=== PATIENT | female | born 1950 | race Caucasian/White ===

== ENCOUNTER 2016-06-13 08:33 | Outpatient (CLI) | payer MEDICARE, OTHER ==
[2016-06-13 09:38] LABS: ALT (SGPT) 46 U/L (8-55); AST (SGOT) 39 U/L (5-34); Albumin 4.3 g/dL (3.4-4.8); Alkaline Phosphatase 105 U/L (40-150); Anion Gap 17 mmol/L (10-20); BUN (Urea Nitrogen) 19 mg/dL (9.8-20.1); Bilirubin, Total 0.3 mg/dL (0.2-1.2); Calc. Creatinine Clearance 0 mL/min (70-130); Calcium 11.8 mg/dL (7.8-10.44); Carbon Dioxide 23 mmol/L (23-31); Cardiac Risk 5.6 (Less than 4.5); Chloride 104 mmol/L (98-107); Cholesterol 209 mg/dL (< 200 Desired); Estimated GFR-MDRD 56; Globulin 2.9 g/dL (2.4-3.5); Glucose 159 mg/dL (80-115); HDL Cholesterol 37 mg/dL (>60 Neg Risk); Hemoglobin A1c 9.5 % (4.0-6.0); Potassium 4.5 mmol/L (3.5-5.1); Protein, Total 7.2 g/dL (5.8-8.1); Sodium 139 mmol/L (136-145); Triglycerides 478 mg/dL (Less than 150)
[2016-06-13 12:09] LABS: LDL Cholesterol, Calculated 76 mg/dL
== END 2016-06-13 08:34 ==
LOC: MADLABBHPM 08:33
PROVIDERS: ATTEND Family Medicine
DX: E78.5 Hyperlipidemia, unspecified (principal); F32.3 Major depressive disorder, single episode, severe with psychotic features; I10 Essential (primary) hypertension; E11.65 Type 2 diabetes mellitus with hyperglycemia
CPT/HCPCS: 36415; 80053; 80061; 83036; 84443

== ENCOUNTER 2016-10-29 13:45 | Emergency (ER) | payer MEDICARE, MEDICAID ==
[2016-10-29 14:37] LABS: PTT 26.9 SEC (22.9-36.1); Prothrombin Time 13.1 SEC (12.0-14.7)
[2016-10-29 14:44] LABS: Band 1 % (5-11); Eosinophils 1 % (0-10); Hemoglobin 12.5 g/dL (12.0-16.0); Lymphocytes 19 % (21-51); MDiff Complete? YES; Mean Corpuscular HGB CONC 32.8 g/dL (32.0-36.0); Mean Corpuscular Hemoglobin 31.1 pg (27.0-31.0); Mean Corpuscular Volume 94.8 fl (81.0-99.0); Mean Platelet Volume 6.6 fL (7.4-10.4); Monocytes 8 % (0-10); Neutrophil 71 % (42-75); PLT Morphology Comment Appears Adequate; Platelet Count 249 thou/uL (130-400); RBC Distribution Width 12.3 % (11.5-14.5); White Blood Cell (WBC) Count 10.4 thou/uL (4.8-10.8)
[2016-10-29 14:45] LABS: ALT (SGPT) 20 U/L (8-55); AST (SGOT) 18 U/L (5-34); Albumin 4.3 g/dL (3.4-4.8); Alkaline Phosphatase 70 U/L (40-150); Anion Gap 17 mmol/L (10-20); BUN (Urea Nitrogen) 11 mg/dL (9.8-20.1); Bilirubin, Total 0.4 mg/dL (0.2-1.2); Calc. Creatinine Clearance 0 mL/min (70-130); Calcium 11.1 mg/dL (7.8-10.44); Carbon Dioxide 20 mmol/L (23-31); Chloride 100 mmol/L (98-107); Estimated GFR-MDRD 57; Globulin 3.1 g/dL (2.4-3.5); Glucose 134 mg/dL (80-115); Potassium 4.6 mmol/L (3.5-5.1); Protein, Total 7.4 g/dL (6.0-8.3); Sodium 132 mmol/L (136-145)
[2016-10-29 14:48] LABS: CKMB 0.9 ng/mL (0-6.6); Troponin I 0.013 ng/mL (< 0.028)
[2016-10-29 14:53] LABS: Magnesium 1.2 mg/dL (1.6-2.6)
--- NOTE | 2016-10-29 15:11 | CT ---
CT BRAIN WITHOUT CONTRAST: History: Altered mental status, right sided weakness. FINDINGS: A tiny old lacunar infarction is seen in the left thalamus. No evidence of acute infract, hemorrhage , midline shift, or abnormal extraaxial fluid collections are seen. The ventricular sizes are approp riate and the basilar cisterns patent. The bony calvarium is intact. There is mucosal disease in the paranasal sinuses. A radiopaque foreign body is seen in the right parietal scalp. IMPRESSION: 1. No CT evidence of acute intracranial process. 2. Findings were discussed over the telephone with ER physician, Dr. Leon Rogers, at 2:39 p.m. POS: [facility]
[2016-10-29] MEDS ORDERED: Aspirin 300 MG Suppository ONE (15:12)
--- NOTE | 2016-10-29 15:19 | RAD ---
PORTABLE CHEST ONE VIEW: Date: 10-29-16 Time: 2:36 p.m. History: Right sided weakness, altered mental status. FINDINGS: The heart size is normal. The lungs are expanded. No focal areas of consolidation, pneumothorax or p leural effusions are seen. IMPRESSION: No acute process. POS: [facility]
== END 2016-10-29 15:25 | disposition short-term general hospital (02) ==
LOC: MADERS 13:45
DX: I63.9 Cerebral infarction, unspecified (principal); E11.9 Type 2 diabetes mellitus without complications; I10 Essential (primary) hypertension; F41.9 Anxiety disorder, unspecified; F17.210 Nicotine dependence, cigarettes, uncomplicated; F32.9 Major depressive disorder, single episode, unspecified; Z79.4 Long term (current) use of insulin
CPT/HCPCS: 36416; 51702; 70450; 71010; 80053; 82553; 83735; 83880; 84484; 85025; 85610; 85730

== ENCOUNTER 2017-01-07 16:38 | Outpatient (CLI) | payer MEDICARE, MEDICAID ==
--- NOTE | 2017-01-07 17:25 | RAD ---
RIGHT RIBS GREATER THAN EQUAL TO TWO VIEWS STANDARD 01/07/17 HISTORY: Pain from Heimlich maneuver. COMPARISON: None. FINDINGS: Nondisplaced fracture of the right anterolateral fourth, fifth and sixth ribs. There are possibly oth er nondisplaced rib fractures though not well seen. Small right effusion. IMPRESSION: 1. Nondisplaced right lateral fourth, fifth, and six rib fractures. 2. Small right effusion is similar to the comparison examination. POS: [facility]
--- NOTE | 2017-01-07 17:40 | RAD ---
LEFT WRIST GREAT THAN OR EQUAL TWO VIEW 01/07/17 HISTORY: Pain. COMPARISON: None. FINDINGS: There are nondisplaced fractures left lateral fifth, sixth and seventh ribs. Small left effusion is s imilar. IMPRESSION: Nondisplaced fracture left fifth, sixth and seventh ribs. POS: [facility]
== END 2017-01-07 16:39 | disposition home or self-care (01) ==
LOC: MADRAD 16:38
PROVIDERS: ATTEND Family Medicine
DX: R07.81 Pleurodynia (principal); I49.8 Other specified cardiac arrhythmias; S22.42XA Multiple fractures of ribs, left side, initial encounter for closed fracture; S22.41XA Multiple fractures of ribs, right side, initial encounter for closed fracture; J90 Pleural effusion, not elsewhere classified
CPT/HCPCS: 93005; 93010

== ENCOUNTER 2017-05-26 07:21 | Emergency (ER) | payer MEDICARE, MEDICAID ==
[2017-05-26 08:25] LABS: Hemoglobin 13.5 g/dL (12.0-16.0); Mean Corpuscular HGB CONC 34.4 g/dL (32.0-36.0); Mean Corpuscular Hemoglobin 32.4 pg (27.0-31.0); Mean Platelet Volume 6.9 fL (7.4-10.4); Platelet Count 221 thou/uL (130-400); RBC Distribution Width 11.8 % (11.5-14.5); Red Blood Cell (RBC) Count 4.14 mill/uL (4.20-5.40); White Blood Cell (WBC) Count 7.7 thou/uL (4.8-10.8)
[2017-05-26 08:31] LABS: Anisocytosis SLIGHT = 6-15 cells (100X) (0-5/hpf); Band 2 % (5-11); Lymphocytes 14 % (21-51); MDiff Complete? YES; Manual Diff?? YES; Monocytes 6 % (0-10); Neutrophil 78 % (42-75)
[2017-05-26 08:32] LABS: PLT Morphology Comment Appears Adequate
[2017-05-26 08:33] LABS: ALT (SGPT) 26 U/L (8-55); AST (SGOT) 24 U/L (5-34); Albumin 4.2 g/dL (3.4-4.8); Alkaline Phosphatase 108 U/L (40-150); Anion Gap 14 mmol/L (10-20); BUN (Urea Nitrogen) 12 mg/dL (9.8-20.1); Bilirubin, Total 0.4 mg/dL (0.2-1.2); Calc. Creatinine Clearance 0 mL/min (70-130); Calcium 11.1 mg/dL (7.8-10.44); Carbon Dioxide 24 mmol/L (23-31); Chloride 103 mmol/L (98-107); Estimated GFR-MDRD 55; Globulin 3.1 g/dL (2.4-3.5); Glucose 211 mg/dL (80-115); Potassium 4.6 mmol/L (3.5-5.1); Protein, Total 7.3 g/dL (6.0-8.3); Sodium 136 mmol/L (136-145)
[2017-05-26 08:35] LABS: CKMB 0.8 ng/mL (0-6.6); Troponin I Less than 0.010 ng/mL (< 0.028)
[2017-05-26 08:37] LABS: Bilirubin Negative (Negative); Blood, Urine Trace (Negative); Clarity Cloudy (Clear); Glucose, Urine (Dipstick) Negative (Negative); Leukocyte Moderate (Negative); Nitrite Negative (Negative); Protein, Urine (Dipstick) 30 mg/dL (Neg-Trace); Specific Gravity, Urine 1.015 (1.005-1.030); Urobilinogen 0.2 mg/dL (0.2-1.0)
[2017-05-26 08:38] LABS: Bacteria/HPF 4+ HPF (None Seen); RBC/HPF 0-3 HPF (0-3)
[2017-05-26] MEDS ORDERED: Sulfameth/Trimethoprim DS 800-160mg TAB ONE (09:08)
--- NOTE | 2017-05-26 09:35 | RAD ---
CHEST TWO VIEWS: History: 66-year-old female with history of fall earlier this evening. FINDINGS: Minimal increased markings in the right costophrenic angle which appear to be both pleural and parenc hymal in origin and little change, possibly slightly more prominent than on the prior study of . No pneumothorax or significant pleural effusion. IMPRESSION: Minimally derisive pleural and parenchymal opacity changes in the right costophrenic angle. Stable in creased markings bilaterally. Stable healed rib fractures. I favor these changes in the right costoph renic angle to be more likely related to some scarring or some subsegmental atelectasis. Depending up on concern, short term follow up study might be of benefit. POS: [facility]
--- NOTE | 2017-05-26 09:41 | CT ---
NONCONTRAST CT HEAD: Date: 05-26-17 History: Patient fell this morning. Head injury. History of prior CVA. Comparison: MRI brain, 10-30-16 FINDINGS: There is a small rounded metallic foreign body seen in the lateral right parietal scalp soft tissues consistent with foreign body. This does result in artifact. However, there is no evidence of a hemorr vinicio, acute infarction, mass effect, or midline shift. There is mild cerebral volume loss similar to the prior MRI exam. The ventricular system is normal in size, shape, and position for the degree of s ulcal atrophy. There is opacification of the posterior left ethmoidal air cell. The remainder of the visualized para nasal sinuses and mastoid air cells are clear. Calvarial structures appear intact without evidence of a fracture. The distal left vertebral artery as well as the basilar artery do appear ectatic, stable from prior exam. IMPRESSION: 1. No acute intracranial abnormalities demonstrated. 2. Subcentimeter metallic foreign body in the right lateral parietal scalp soft tissues. 3. Opacification of a posterior left ethmoidal air cell. POS: [facility]
== END 2017-05-26 09:56 | disposition home or self-care (01) ==
LOC: MADERS 07:21
DX: N39.0 Urinary tract infection, site not specified (principal); E11.9 Type 2 diabetes mellitus without complications; I10 Essential (primary) hypertension; F41.9 Anxiety disorder, unspecified; F32.9 Major depressive disorder, single episode, unspecified; Z87.891 Personal history of nicotine dependence; Z79.4 Long term (current) use of insulin; Z79.82 Long term (current) use of aspirin; Z79.899 Other long term (current) drug therapy; Z79.891 Long term (current) use of opiate analgesic
CPT/HCPCS: 70450; 71046; 80053; 81003; 81015; 82553; 84443; 84484; 85025; 87077; 87086; 87186; 93005

== ENCOUNTER 2017-06-01 11:04 | Emergency (ER) | payer MEDICARE, OTHER ==
--- NOTE | 2017-06-01 12:43 | RAD ---
THREE VIEWS LEFT WRIST: History: 66-year-old with history of fall and injury. Left wrist pain. FINDINGS: AP, lateral, and oblique views of the left wrist obtained. Images demonstrate old arthritic changes i n the first carpal metacarpal joint. There appears to be an area of nondisplaced lucency involving the radial styloid. This appears to ext end medially and anteriorly into the articulating surface extending into the distal radius along the medial aspect of the scaphoid fossa. No other fractures seen. IMPRESSION: Area of lucency seen in the radial styloid. Age of this indeterminate. This can be further evaluated using MRI as well as clinical history. POS: [facility]
== END 2017-06-01 13:23 | disposition home or self-care (01) ==
LOC: MADERS 11:04
DX: S69.92XA Unspecified injury of left wrist, hand and finger(s), initial encounter (principal); E11.9 Type 2 diabetes mellitus without complications; I10 Essential (primary) hypertension; J44.9 Chronic obstructive pulmonary disease, unspecified; F32.9 Major depressive disorder, single episode, unspecified; F41.9 Anxiety disorder, unspecified; F17.210 Nicotine dependence, cigarettes, uncomplicated; Z79.4 Long term (current) use of insulin; Z79.899 Other long term (current) drug therapy; W19.XXXA Unspecified fall, initial encounter
CPT/HCPCS: 36416

== ENCOUNTER 2017-06-06 12:23 | Emergency (ER) | payer MEDICARE, MEDICAID ==
[2017-06-06 13:06] LABS: #Eosinphils 0.3 thou/uL (0.0-0.7); #Lymphocytes 2.2 thou/uL (1.20-3.40); #Monocytes 0.4 thou/uL (0.11-0.59); #Neutrophils 4.6 thou/uL (1.40-6.50); %Basophils 0.5 % (0.0-1.0); %Eosinophils 3.8 % (0.0-10.0); %Monocytes 5.9 % (0.0-10.0); %Neutrophils 60.8 % (42.0-75.0); Hemoglobin 13.1 g/dL (12.0-16.0); Mean Corpuscular HGB CONC 34.8 g/dL (32.0-36.0); Mean Corpuscular Hemoglobin 33.1 pg (27.0-31.0); Mean Corpuscular Volume 94.9 fl (81.0-99.0); Platelet Count 284 thou/uL (130-400); Red Blood Cell (RBC) Count 3.97 mill/uL (4.20-5.40); White Blood Cell (WBC) Count 7.5 thou/uL (4.8-10.8)
[2017-06-06 13:19] LABS: Bilirubin Negative (Negative); Blood, Urine Negative (Negative); Clarity Clear (Clear); Glucose, Urine (Dipstick) Negative (Negative); Leukocyte Small (Negative); Nitrite Negative (Negative); Protein, Urine (Dipstick) Negative (Neg-Trace)
[2017-06-06 13:23] LABS: ALT (SGPT) 29 U/L (8-55); AST (SGOT) 37 U/L (5-34); Albumin 4.4 g/dL (3.4-4.8); Alkaline Phosphatase 111 U/L (40-150); Anion Gap 14 mmol/L (10-20); BUN (Urea Nitrogen) 15 mg/dL (9.8-20.1); Bilirubin, Total 0.3 mg/dL (0.2-1.2); Calc. Creatinine Clearance 0 mL/min (70-130); Calcium 11.4 mg/dL (7.8-10.44); Carbon Dioxide 24 mmol/L (23-31); Chloride 104 mmol/L (98-107); Estimated GFR-MDRD 53; Glucose 131 mg/dL (80-115); Potassium 5.4 mmol/L (3.5-5.1); Protein, Total 7.4 g/dL (6.0-8.3); Sodium 137 mmol/L (136-145)
[2017-06-06 13:27] LABS: Bacteria/HPF 1+ HPF (None Seen); RBC/HPF None Seen HPF (0-3)
[2017-06-06] MEDS ORDERED: Cephalexin 500 MG CAP ONE (14:00)
== END 2017-06-06 14:28 | disposition home or self-care (01) ==
LOC: MADERS 12:23
DX: R53.1 Weakness (principal); N39.0 Urinary tract infection, site not specified; E11.9 Type 2 diabetes mellitus without complications; J44.9 Chronic obstructive pulmonary disease, unspecified; I10 Essential (primary) hypertension; F41.9 Anxiety disorder, unspecified; F32.9 Major depressive disorder, single episode, unspecified; F17.210 Nicotine dependence, cigarettes, uncomplicated; Z79.4 Long term (current) use of insulin; Z79.82 Long term (current) use of aspirin; Z79.899 Other long term (current) drug therapy
CPT/HCPCS: 36415; 80053; 81003; 81015; 85025

== ENCOUNTER 2017-06-25 20:29 | Emergency (ER) | payer MEDICARE, OTHER ==
[2017-06-25] MEDS ORDERED: Bisacodyl 10 MG SUPP ONE (20:49)
== END 2017-06-25 22:42 | disposition home or self-care (01) ==
LOC: MADERS 20:29
DX: K59.00 Constipation, unspecified (principal); E11.9 Type 2 diabetes mellitus without complications; K21.9 Gastro-esophageal reflux disease without esophagitis; E78.5 Hyperlipidemia, unspecified; I10 Essential (primary) hypertension; F17.210 Nicotine dependence, cigarettes, uncomplicated; F41.9 Anxiety disorder, unspecified; F32.9 Major depressive disorder, single episode, unspecified; Z79.891 Long term (current) use of opiate analgesic; Z79.4 Long term (current) use of insulin; Z79.899 Other long term (current) drug therapy
CPT/HCPCS: 99283

== ENCOUNTER 2017-07-10 14:04 | Emergency (ER) | payer MEDICARE, OTHER ==
[~2017-07-10 14:04] MED LIST: Sodium Chloride 0.9% 1,000 ML BAG ONE
--- NOTE | 2017-07-10 16:22 | RAD ---
CHEST 1 VIEW AND ABDOMEN 2 VIEWS: Date: 07/10/17 HISTORY: Constipation. FINDINGS: The heart size is borderline. There is mild pulmonary vascular congestion. No lobar consolidation, pn eumothoraces, or large effusions are seen. No free fluid or differential fluid levels are noted. Ther e are postop changes in the spine. There is fecal material in the colon and rectum. IMPRESSION: Constipation. POS: [facility]
[2017-07-10 16:40] LABS: #Basophils 0.1 thou/uL (0.0-0.2); #Eosinphils 0.4 thou/uL (0.0-0.7); #Lymphocytes 2.9 thou/uL (1.20-3.40); #Monocytes 0.6 thou/uL (0.11-0.59); #Neutrophils 4.7 thou/uL (1.40-6.50); %Basophils 1.1 % (0.0-1.0); %Eosinophils 4.9 % (0.0-10.0); %Lymphocytes 33.5 % (21.0-51.0); %Monocytes 6.4 % (0.0-10.0); Hemoglobin 13.4 g/dL (12.0-16.0); Mean Corpuscular HGB CONC 33.5 g/dL (32.0-36.0); Mean Corpuscular Volume 92.7 fl (81.0-99.0); Mean Platelet Volume 6.9 fL (7.4-10.4); Platelet Count 275 thou/uL (130-400); RBC Distribution Width 12.2 % (11.5-14.5); White Blood Cell (WBC) Count 8.6 thou/uL (4.8-10.8)
[2017-07-10] MEDS ORDERED: Ketorolac Tromethamine 30 MG/ML VIAL ONE (16:43)
[2017-07-10 16:59] LABS: ALT (SGPT) 18 U/L (8-55); AST (SGOT) 21 U/L (5-34); Albumin 4.4 g/dL (3.4-4.8); Alkaline Phosphatase 106 U/L (40-150); Anion Gap 13 mmol/L (10-20); BUN (Urea Nitrogen) 15 mg/dL (9.8-20.1); Bilirubin, Total 0.4 mg/dL (0.2-1.2); Calc. Creatinine Clearance 0 mL/min (70-130); Calcium 11.6 mg/dL (7.8-10.44); Carbon Dioxide 25 mmol/L (23-31); Chloride 106 mmol/L (98-107); Estimated GFR-MDRD 56; Globulin 3.3 g/dL (2.4-3.5); Glucose 215 mg/dL (80-115); Potassium 4.3 mmol/L (3.5-5.1); Protein, Total 7.7 g/dL (6.0-8.3); Sodium 140 mmol/L (136-145)
[2017-07-10] MEDS ORDERED: Fleet Enema 133 ML BOT ONE (17:19)
[2017-07-10] MEDS ORDERED: Magnesium Citrate 300 ML BOT ONE (18:04)
== END 2017-07-10 19:50 | disposition home or self-care (01) ==
LOC: MADERS 14:04
DX: K59.00 Constipation, unspecified (principal); E11.9 Type 2 diabetes mellitus without complications; K21.9 Gastro-esophageal reflux disease without esophagitis; E78.5 Hyperlipidemia, unspecified; I10 Essential (primary) hypertension; J44.9 Chronic obstructive pulmonary disease, unspecified; F41.9 Anxiety disorder, unspecified; F32.9 Major depressive disorder, single episode, unspecified; F17.210 Nicotine dependence, cigarettes, uncomplicated; Z79.82 Long term (current) use of aspirin; Z79.899 Other long term (current) drug therapy; Z79.891 Long term (current) use of opiate analgesic
CPT/HCPCS: 36415; 74022; 80053; 83605; 85025; 87077; 87086; 87186; 96361; 96374; J1885; J7050

== ENCOUNTER 2017-07-16 15:22 | Outpatient (CLI) | payer MEDICARE, OTHER ==
--- NOTE | 2017-07-16 15:57 | RAD ---
RIGHT KNEE 3 VIEWS: Date: 07/16/17 HISTORY: 66-year-old female with history of right knee pain. FINDINGS/IMPRESSION: Degenerative changes right knee joint without fracture or dislocation. POS: [facility]
--- NOTE | 2017-07-16 15:58 | RAD ---
LEFT KNEE 3 VIEWS: Date: 07/16/17 HISTORY: Knee pain. FINDINGS: There is severe medial compartment joint space narrowing. There is some mild patellofemoral and later al compartment change. There is chondrocalcinosis of the meniscal cartilage of the lateral meniscus. Vascular calcifications are seen. IMPRESSION: Severe medial compartment joint space narrowing. POS: [facility]
== END 2017-07-16 15:23 | disposition home or self-care (01) ==
LOC: MADRAD 15:22
PROVIDERS: ATTEND Orthopaedic Surgery
DX: M25.561 Pain in right knee (principal); M25.562 Pain in left knee

== ENCOUNTER 2017-08-04 09:56 | Outpatient (CLI) | payer MEDICARE, OTHER ==
[2017-08-04] MEDS ORDERED: Iopamidol 370 76% 100 ML VIAL ONE (11:26)
--- NOTE | 2017-08-04 12:24 | ULT ---
THYROID ULTRASOUND: Date: 08/04/17 COMPARISON: None. HISTORY: Hyperparathyroidism, history of right-sided thyroidectomy in 2013. TECHNIQUE: Multiplanar Car scale sonographic imaging of the thyroid gland obtained. FINDINGS: The right lobe of the thyroid gland is absent. The left lobe of the thyroid gland measures 4.5 x 2.6 x 2.7 cm. Thyroid isthmus measures 5.0 mm, within normal limits. There is a 1.1 x 0.9 x 1.2 cm cyst in the inferior aspect of the left lobe of the thyroid gland. The thyroid parenchyma appears heterogeneous and lobulated on the left. There is a heterogeneously isoech oic round solid nodule in the mid left lobe measuring approximately 1.5 x 1.3 cm. If there is clinical concern for hyperparathyroidism, nuclear medicine examination and/or CT exam of the neck with and without contrast using a parathyroid protocol advised. IMPRESSION: 1.5 cm solid nodule in the left lobe of the thyroid gland, which based on TI-RADS criteria is a TR3 l esion - mildly suspicious. Given its size, a follow-up ultrasound is advised in 1 year. POS: [facility]
--- NOTE | 2017-08-04 13:13 | CT ---
CONTRAST ENHANCED CT SOFT TISSUE NECK: History: Hyperparathyroidism, evaluate for neck mass. Technique: Contrast enhanced CT of the soft tissue neck performed. Unfortunately, parathyroid scan dedicated CT which includes pre-contrast enhanced, arterial phase, an d venous phase images were not obtained. Only a conventional soft tissue neck CT was performed which is not definitely diagnostic for detection of parathyroid pathology. Repeat dynamic pre and post cont rast enhanced parathyroid CT soft tissue neck recommended if there is concern for parathyroid disease . FINDINGS: The patient had has a right sided thyroidectomy. The left thyroid gland is heterogeneous with multipl e nodules within it. The patient has had a previous ACDF with fusion of the C6-7 vertebra. Old C4-5 f usion is present. There is loss of the normal lordotic curvature of the cervical spine. The parotid glands are unremarkable. No definite evidence of lymphadenopathy seen. The common carotid arteries are unremarkable. Some atherosclerotic plaque seen in the origin of the internal carotid ar teries. IMPRESSION: Patient with previous right sided thyroidectomy. I cannot exclude the possibility of parathyroid renetta omas. See above dictation. POS: [facility]
== END 2017-08-04 09:57 | disposition home or self-care (01) ==
LOC: MADULT 09:56
PROVIDERS: ATTEND Family Medicine
DX: E21.3 Hyperparathyroidism, unspecified (principal); E04.2 Nontoxic multinodular goiter; Z90.89 Acquired absence of other organs; Z98.1 Arthrodesis status
CPT/HCPCS: 36415; 70491; 76536; 82565

== ENCOUNTER 2017-09-02 15:18 | Emergency (ER) | payer MEDICARE, MEDICAID ==
[2017-09-02 16:20] LABS: #Eosinphils 0.3 thou/uL (0.0-0.7); #Lymphocytes 1.6 thou/uL (1.20-3.40); #Monocytes 0.4 thou/uL (0.11-0.59); #Neutrophils 3.6 thou/uL (1.40-6.50); %Basophils 0.7 % (0.0-1.0); %Eosinophils 4.6 % (0.0-10.0); %Lymphocytes 27.4 % (21.0-51.0); %Neutrophils 60.4 % (42.0-75.0); Hemoglobin 11.3 g/dL (12.0-16.0); Mean Corpuscular HGB CONC 33.7 g/dL (32.0-36.0); Mean Corpuscular Hemoglobin 31.5 pg (27.0-31.0); Mean Corpuscular Volume 93.3 fL (78.0-98.0); Mean Platelet Volume 6.4 fL (7.4-10.4); Platelet Count 189 thou/uL (130-400); RBC Distribution Width 12.3 % (11.5-14.5); White Blood Cell (WBC) Count 5.9 thou/uL (4.8-10.8)
[2017-09-02 16:29] LABS: ALT (SGPT) 20 U/L (8-55); AST (SGOT) 17 U/L (5-34); Albumin 3.8 g/dL (3.4-4.8); Alkaline Phosphatase 75 U/L (40-150); Anion Gap 12 mmol/L (10-20); BUN (Urea Nitrogen) 15 mg/dL (9.8-20.1); Bilirubin, Total 0.2 mg/dL (0.2-1.2); Calc. Creatinine Clearance 0 mL/min (70-130); Calcium 10.2 mg/dL (7.8-10.44); Carbon Dioxide 21 mmol/L (23-31); Chloride 108 mmol/L (98-107); Estimated GFR-MDRD 52; Globulin 2.2 g/dL (2.4-3.5); Glucose 383 mg/dL (80-115); Potassium 4.1 mmol/L (3.5-5.1); Sodium 137 mmol/L (136-145)
[2017-09-02 16:55] LABS: Bilirubin Negative (Negative); Blood, Urine Trace (Negative); Glucose, Urine (Dipstick) >=1000 mg/dL (Negative); Leukocyte Negative (Negative); Nitrite Negative (Negative); Protein, Urine (Dipstick) Negative (Neg-Trace); Urobilinogen 0.2 mg/dL (0.2-1.0)
[2017-09-02 17:04] LABS: Clarity Hazy (Clear)
[2017-09-02 17:15] LABS: Bacteria/HPF Rare-Few HPF (None Seen); RBC/HPF 0-3 HPF (0-3); Squamous Epithelial 0-3 HPF (0-3); WBC/HPF 0-3 HPF (0-3)
[2017-09-02] MEDS ORDERED: Insulin Regular 300 UNITS/3 ML VIAL ONE (17:28)
== END 2017-09-02 18:35 | disposition home or self-care (01) ==
LOC: MADERS 15:18
DX: E11.65 Type 2 diabetes mellitus with hyperglycemia (principal); I10 Essential (primary) hypertension; D64.9 Anemia, unspecified; E21.3 Hyperparathyroidism, unspecified; F32.9 Major depressive disorder, single episode, unspecified; F41.9 Anxiety disorder, unspecified; F17.210 Nicotine dependence, cigarettes, uncomplicated; K21.9 Gastro-esophageal reflux disease without esophagitis; E78.5 Hyperlipidemia, unspecified; E66.9 Obesity, unspecified; J44.9 Chronic obstructive pulmonary disease, unspecified; Z79.4 Long term (current) use of insulin; Z79.899 Other long term (current) drug therapy; Z79.82 Long term (current) use of aspirin
CPT/HCPCS: 36415; 36416; 81003; 81015; 85025; 96360; J1815; J7050

== ENCOUNTER 2017-11-15 09:49 | Emergency (ER) | payer MEDICAID, MEDICARE ==
--- NOTE | 2017-11-15 10:21 | CT ---
CT BRAIN WITHOUT CONTRAST: HISTORY: Headache. COMPARISON: CT brain 09/07/2017. FINDINGS: Moderate atrophy. No acute hemorrhage or infarct. No midline shift or mass effect. IMPRESSION: No acute intracranial abnormality. POS: [facility]
[2017-11-15 10:29] LABS: #Basophils 0.1 thou/uL (0.0-0.2); #Eosinphils 0.2 thou/uL (0.0-0.7); #Lymphocytes 2.4 thou/uL (1.20-3.40); #Monocytes 0.7 thou/uL (0.11-0.59); %Basophils 0.8 % (0.0-1.0); %Monocytes 5.8 % (0.0-10.0); %Neutrophils 70.5 % (42.0-75.0); Hemoglobin 12.6 g/dL (12.0-16.0); Mean Corpuscular HGB CONC 33.9 g/dL (32.0-36.0); Mean Corpuscular Hemoglobin 32.2 pg (27.0-31.0); Mean Platelet Volume 6.8 fL (7.4-10.4); Platelet Count 329 thou/uL (130-400); RBC Distribution Width 11.3 % (11.5-14.5); White Blood Cell (WBC) Count 11.3 thou/uL (4.8-10.8)
[2017-11-15] MEDS ORDERED: Acetaminophen 500 MG TAB ONE (10:43)
[2017-11-15] MEDS ORDERED: HYDROcodone/Acetaminophen 5/325 mg Tablet ONE (10:43)
[2017-11-15] MEDS ORDERED: Prochlorperazine 10 MG/2 ML VIAL ONE (10:43)
[2017-11-15] MEDS ORDERED: diphenhydrAMINE 50 MG/ML VIAL ONE (10:43)
[2017-11-15 10:44] LABS: ALT (SGPT) 15 U/L (8-55); AST (SGOT) 17 U/L (5-34); Albumin 4.3 g/dL (3.4-4.8); Alkaline Phosphatase 116 U/L (40-150); Anion Gap 16 mmol/L (10-20); BUN (Urea Nitrogen) 10 mg/dL (9.8-20.1); Bilirubin, Total 0.3 mg/dL (0.2-1.2); Calc. Creatinine Clearance 0 mL/min (70-130); Calcium 8.7 mg/dL (7.8-10.44); Carbon Dioxide 24 mmol/L (23-31); Chloride 103 mmol/L (98-107); Estimated GFR-MDRD 55; Globulin 3.4 g/dL (2.4-3.5); Glucose 212 mg/dL (80-115); Potassium 4.2 mmol/L (3.5-5.1); Protein, Total 7.7 g/dL (6.0-8.3); Sodium 139 mmol/L (136-145)
== END 2017-11-15 11:40 | disposition home or self-care (01) ==
LOC: MADERS 09:49
DX: G43.909 Migraine, unspecified, not intractable, without status migrainosus (principal)
CPT/HCPCS: 36415; 70450; 80053; 85025; 93005; 94760; 96374; 96375; J0780; J1200